=== PATIENT | female | born 1960 | race Caucasian/White ===

== ENCOUNTER 2021-04-03 06:37 | Day surgery (SDC) | payer SELFPAY ==
[2021-03-26 14:48] VITALS: BMI 24.9
[2021-04-03] MEDS ORDERED: SODIUM BICARBONATE 8.4% 50 MEQ/50 ML VIAL ONE (07:14)
[2021-04-03] MEDS ORDERED: EPINEPHrine/PF 1 MG/1 ML (1:1,000) AMPULE ONE (07:14)
[2021-04-03] MEDS ORDERED: LIDOCAINE HCL 1%, 10 MG/ML (20ML VIAL) ONE (07:14)
[2021-04-03] MEDS ORDERED: BUPIVACAINE HCL/EPINEPHRINE/PF 30 ML VIAL IJ ONE ×2 (07:14→08:45)
[2021-04-03] MEDS ORDERED: LIDOCAINE HCL 2% (20ML MULTI-DOSE VIAL) ONE (07:29)
[2021-04-03] MEDS ORDERED: SUCCINYLCHOLINE CHLORIDE 200 MG/10 ML SYRINGE ONE ×2 (07:46→08:55)
[2021-04-03] MEDS ORDERED: PROPOFOL 20 ML ONE ×2 (07:46)
[2021-04-03] MEDS ORDERED: fentaNYL CITRATE 250 MCG/5 ML VIAL ONE (07:46)
[2021-04-03] MEDS ORDERED: MIDAZOLAM HCL 2 MG/2 ML SINGLE DOSE VIAL ONE (07:46)
[2021-04-03] MEDS ORDERED: ROCURONIUM BROMIDE 50 MG/5 ML SYRINGE ONE ×2 (07:46→09:39)
[2021-04-03] MEDS ORDERED: LIDOCAINE HCL/PF 2% SDV 5ML VIAL ONE (07:47)
[2021-04-03] MEDS ORDERED: ONDANSETRON 4 MG/2 ML VIAL ONE ×3 (09:22→14:31)
[2021-04-03] MEDS ORDERED: DEXAMETHASONE SOD PHOSPHATE 4 MG/1 ML VIAL ONE (09:22)
[2021-04-03] MEDS ORDERED: NEOSTIGMINE METHYLSULFATE 0.5 MG/1 ML - 10 ML MDV ONE (09:43)
[2021-04-03] MEDS ORDERED: GLYCOPYRROLATE 0.2 MG/1 ML VIAL ONE (09:43)
[2021-04-03] MEDS ORDERED: DESFLURANE GAS 240 ML BOTTLE IH ONE ×2 (11:55→11:57)
[2021-04-03] MEDS ORDERED: ONDANSETRON 4 MG/2 ML VIAL IVPUSH PRN ×2 (14:05→14:12)
[2021-04-03] MEDS ORDERED: oxyCODONE HCL 5 MG TABLET PO PRN (14:07)
[2021-04-03] MEDS: ACETAMINOPHEN 500 MG TABLET (FP) PO SCH ×3 (14:15→21:44)
[2021-04-03] MEDS ORDERED: LACTATED RINGERS SOLUTION 1,000 ML IV SCH ×2 (14:15)
[2021-04-03] MEDS ORDERED: METOCLOPRAMIDE HCL INJECTION 10 MG/2 ML VIAL ONE (14:31)
[2021-04-03] MEDS: CEFAZOLIN 1 GM/D5W 1 GM/50 ML BAG IVPB SCH (17:50)
[2021-04-03] MEDS: oxyCODONE HCL 5 MG TABLET PO PRN (22:38)
[2021-04-04] MEDS: CEFAZOLIN 1 GM/D5W 1 GM/50 ML BAG IVPB SCH (01:14)
[2021-04-04] MEDS: ACETAMINOPHEN 500 MG TABLET (FP) PO SCH ×2 (03:49→09:13)
[2021-04-04] MEDS: oxyCODONE HCL 5 MG TABLET PO PRN (05:21)
[2021-04-04 06:41] VITALS: BP 118/52; PULSE 88; TEMP 98.4
== END 2021-04-04 12:00 | disposition home or self-care (01) ==
LOC: FASUSAT 06:37 → FM/S 16:29 → FASUSAT 04-04 12:00
PROVIDERS: ATTEND Plastic Surgery
PROC: 0J060ZZ Alteration of Chest Subcutaneous Tissue and Fascia, Open Approach (ICD-10-PCS; 2021-04-03)
PROC: 0HWPX7Z Revision of Autologous Tissue Substitute in Skin, External Approach (ICD-10-PCS; 2021-04-03)
PROC: 0J083ZZ Alteration of Abdomen Subcutaneous Tissue and Fascia, Percutaneous Approach (ICD-10-PCS; principal; 2021-04-03 09:27)
PROC: 0J073ZZ Alteration of Back Subcutaneous Tissue and Fascia, Percutaneous Approach (ICD-10-PCS; 2021-04-03 09:27)
DX: L98.7 Excessive and redundant skin and subcutaneous tissue (principal); E88.1 Lipodystrophy, not elsewhere classified; L90.5 Scar conditions and fibrosis of skin
CPT/HCPCS: 94760